=== PATIENT | female | born 1975 | race Caucasian/White ===

== ENCOUNTER 2016-11-27 15:57 | Inpatient (IN) | payer OTHER ==
--- NOTE | 2016-11-08 14:16 | GHP ---
[f rep st] PREOP HISTORY AND PHYSICAL ADDENDUM TO PREVIOUSLY DICTATED REPORT DATE OF ADMISSION: 11/27/2016 HISTORY OF PRESENT ILLNESS: The patient is a 41-year-old, 3, para 1, 0- 1-1, who was scheduled for a repeat low transverse section for November. She presented in active labor on November 27, 2016. She began having contractions early in the morning of the . They increased in intensity and frequency in the afternoon, and at 4:30 p.m. she presented with contractions every 4-5 minutes. They were getting intense and her cervix was 2 cm, 80%, -2. heart tones are 140s and reactive, category 1. I counseled her regarding her options of attempting a vaginal after section versus a repeat section, patient desires a repeat section and we will proceed today. /[id number] ORIGINAL REPORT Amended report DATE OF ADMISSION: 11/29/2016 PLANNED PROCEDURE: Repeat low transverse section on 11/29/2016. INDICATION: History of previous low transverse section. HISTORY OF PRESENT ILLNESS: The patient will be a 41-year-old 3, para 1 -0-1-1 who will be at 39+ weeks' gestation. She has a history of a previous low transverse section for breech presentation. The patient presented in active labor and was not noted to be in breech presentation, got to 8 cm dilated when the breech presentation was discovered, and underwent a primary low transverse section. The patient was somewhat traumatized by that but has come to terms with it. We have had long discussions about attempting a vaginal after section versus having a repeat low transverse section. The patient has decided to have a repeat low transverse section. If she presents in active labor prior to her scheduled C- section date, she might make a decision to attempt a vaginal after section, and she has been adequately counseled on the risks of uterine rupture. The patient as of now wishes to proceed with repeat . MEDICAL HISTORY: None. MEDICATIONS: vitamins. SURGICAL HISTORY: Primary low transverse section. ALLERGIES: No known drug allergies. SOCIAL HISTORY: Patient is . She works as a erp project manager. She lives with her and their other child. She denies tobacco, alcohol, or drug use. FAMILY MEDICAL HISTORY: Noncontributory. OFFICE PROFESSIONALS HISTORY: Menarche age 12-13. Periods are 28 days, lasting 6 days. She is a 3, para 1-0-1-1. In 07/2013, she had a primary low transverse section at 39-4/7 weeks' gestation, and patient progressed in active labor and was found to be breech at 8 cm. She was delivered by [facility] for that . In 07/2015, she had a first trimester spontaneous that did not require a D and C. Current has been uncomplicated. It was conceived spontaneously. She has doing 2 times a week nonstress testing because of her advanced maternal age. She did receive RhoGAM in this . Patient does have a questionable history of a septate uterus. She denies any history of any abnormal Pap smears or sexually transmitted diseases. PHYSICAL EXAM: VITAL SIGNS: Patient's vital signs are stable. GENERAL APPEARANCE: Alert and oriented x3. HEART: Rate is regular, regular. LUNGS: Clear to auscultation bilaterally. ABDOMEN: Gravid, nondistended, nontender. EXTREMITIES: Reveal no calf tenderness or edema. PELVIC: Deferred. heart tracings are category 1. She is not having any contractions. GBS was collected today. LABS: Blood type A negative. Antibody screen negative. Rubella immune. GBS is pending. HBsAg negative. HIV negative. Her 50 g glucose was 89. She had a negative first trimester screen, and she had a negative Verifi screen and a negative alpha-fetoprotein. ASSESSMENT AND PLAN: A 41-year-old, 3, para 1-0-0-1 who will be 39+ weeks' gestation. She has a history of previous low transverse section for breech presentation in active labor. Patient plans to have a repeat low transverse section. Her family status is complete, but she declines to have a tubal ligation at this time. Consent has been obtained, and the patient is agreeing to proceed. /[id number]/MODL Add acc#, 11/23/16, lauren OMALLEY
[2016-11-27] MEDS ORDERED: ceFAZolin 2 GM/DEXTROSE 100 ML IV ONE (16:16)
[2016-11-27] MEDS ORDERED: LR 500 ML IV ONE (16:16)
[2016-11-27] MEDS ORDERED: CITRIC ACID/SODIUM CITRATE 30 ML UDCUP PO ONE (16:16)
[2016-11-27] MEDS ORDERED: LR 1,000 ML IV SCH (16:30)
[2016-11-27 16:53] LABS: % IMMATURE GRANULYOCYTES 0.4 % (0.0-1.1); ABSOLUTE IMMATURE GRANULOCYTES 0.04 10^3/uL (0.00-0.10); ADD DIFF? NO; ADD MORPH? NO; ADD SCAN? NO; ATYPICAL LYMPHOCYTE FLAG 10 (0-99); FRAGMENT RBC FLAG 0 (0-99); HEMATOCRIT 38.6 % (38.0-47.0); HEMOGLOBIN 13.9 g/dL (12.6-16.3); LEFT SHIFT FLG 0 (0-99); LIPEMIA HEMOLYSIS FLAG 90 (0-99); MEAN CELL HEMOGLOBIN 32.5 pg (27.9-34.1); MEAN CELL VOLUME 90.2 fL (81.5-99.8); MEAN PLATELET VOLUME 10.7 fL (8.7-11.7); PLATELET CLUMPS FLAG 40 (0-99); PLATELET COUNT 197 10^3/uL (150-400); RED BLOOD CELL COUNT 4.28 10^6/uL (4.18-5.33); RED CELL DISTRIBUTION WIDTH 12.7 % (11.5-15.2)
[2016-11-27] MEDS ORDERED: TERBUTALINE SULFATE 1 MG/ML VIAL ONE (17:30)
[2016-11-27] MEDS ORDERED: AMMONIA AROMATIC 1 EACH AMP IH ONE (17:30)
[2016-11-27] MEDS ORDERED: OXYTOCIN 10 UNIT/ML VIAL ONE (17:30)
[2016-11-27] MEDS ORDERED: LIDOCAINE 1% 30 ML SDV ONE (17:30)
[2016-11-27] MEDS ORDERED: OLIVE OIL 118 ML BTL ONE (17:30)
[2016-11-27] MEDS ORDERED: MISOPROSTOL 200 MCG TAB ONE (17:31)
[2016-11-27] MEDS ORDERED: morphINE PF 5 MG/10 ML INJ ONE (18:12)
[2016-11-27] MEDS ORDERED: fentaNYL 100 MCG/2 ML INJ ONE (18:12)
[2016-11-27] MEDS ORDERED: OXYTOCIN 100 UNITS/10 ML VIAL ONE (18:43)
[2016-11-27] MEDS ORDERED: PHENYLEPHRINE HCL 100 MCG/ML SYR ONE (18:56)
[2016-11-27 18:57] LABS: BASE EXCESS CORD 0.3 mEq/L (-13.6--3.2); CORD BLOOD PCO2 53.4 mmHg (37-60); PH ARTERIAL CORD BLOOD 7.33 (7.10-7.37)
[2016-11-27 19:01] LABS: PH VENOUS CORD BLOOD 7.39 (7.20-7.42)
[2016-11-27] MEDS ORDERED: MEPERIDINE 25 MG/ML SYR IVP PRN (19:28)
[2016-11-27] MEDS ORDERED: ONDANSETRON 4 MG/2 ML VIAL IVP PRN (19:28)
[2016-11-27] MEDS ORDERED: fentaNYL 100 MCG/2 ML INJ IVP PRN (19:28)
[2016-11-27] MEDS ORDERED: HYDROCODONE/APAP 5/325 TAB PO PRN (19:37)
[2016-11-27] MEDS ORDERED: ACETAMINOPHEN 325 MG TAB PO PRN (19:37)
[2016-11-27] MEDS ORDERED: SIMETHICONE 80 MG TAB CHEW PO PRN (19:37)
[2016-11-27] MEDS ORDERED: DOCUSATE SODIUM 100 MG CAP PO PRN (19:37)
[2016-11-27] MEDS ORDERED: MAGNESIUM HYDROXIDE 30 ML UDCUP PO PRN (19:38)
[2016-11-27] MEDS ORDERED: POLYETHYLENE GLYCOL 3350 17 GM PKT PO PRN (19:38)
[2016-11-27] MEDS ORDERED: BISACODYL 10 MG SUPP PR PRN (19:38)
[2016-11-27] MEDS ORDERED: LACTULOSE 20 GM/30 ML UDCUP PO PRN (19:38)
--- NOTE | 2016-11-27 19:41 | OBPROC ---
- Delivery Pre-op Diagnoses: IUP @ 39 weeks h/o c section desires repeat, in active labor Post-op Diagnoses: same Procedure: Repeat Surgeon: Nilda Louis Typewriters Functional Tester: Fani Olson Anesthesiologist: Onel Naylor Elevator Inspector/COLOR CONSULTANT: Mag Torres Anesthesia: Spinal Complications: Other (Specify) (thick meconium) IV Fluid (ml): 1,300 EBL: 800 Cord Gases: Cord Gases Cord Blood PCO2 53.4 mmHg (37-60) 11/27/16 18:50 Cord Base Excess 0.3 mEq/L (-13.6--3.2) H 11/27/16 18:50 Cord ABG pH 7.33 (7.10-7.37) 11/27/16 18:50 Cord VBG pH 7.39 (7.20-7.42) 11/27/16 18:50 - [place] Info Infant A Delivery Date: 11/27/16 Delivery Time: 18:44 Sex of : Male Weight (gm): 3318 g Score (1 Min): 9 Score (5 Min): 9
--- NOTE | 2016-11-27 20:07 | GOP ---
[f rep st] OPERATIVE REPORT DATE OF OPERATION: 11/27/2016 SURGEON: Nilda Louis MD WIRE BOUND BOX MACHINE OPERATOR: WILLIE Banks. Certified nurse 1st assistant associate professor. ANESTHESIA: Spinal anesthesia. ANESTHESIOLOGIST: Onel Naylor MD. PREOPERATIVE DIAGNOSIS: Intrauterine at 39 weeks gestation with a history of lower transverse section. Desires repeat, in active labor. POSTOPERATIVE DIAGNOSIS: Intrauterine at 39 weeks gestation with a history of lower transverse section, desires repeat, in active labor. PROCEDURE PERFORMED: Repeat lower transverse section. FINDINGS: Viable male. Apgars of 9 and 9. Weight of 7 pounds, 5 ounces. ESTIMATED BLOOD LOSS: 800 cc. INDICATIONS: The patient is a 41-year-old 3, para 1-0-1-1, who has an EDC of 12/04/2016 and is 39 weeks gestation. She had a history of with G1 secondary to breech in active labor and desired a repeat for this delivery. She presented with contractions on the morning of the that increased in frequency over the afternoon until they were 3 to 4 minutes apart. On assessment, heart tones were in the 130s, with moderate variability. She had some variable decelerations, but overall category 1 to 2. Cervix was 3 cm, 80%, -2. The patient was intact, and she wanted a repeat . So she was consented for the procedure. She understood the risks and benefits. The risks including bleeding, infection, damage to internal organs, uterus, tubes, ovaries, bowel, bladder, nerves, blood vessels, ureters, risk of injury, risk of hemorrhage requiring blood transfusion, hysterectomy, or . She understood these risks and benefits, agreed to proceed. DESCRIPTION OF PROCEDURE: Patient was taken to the operating room where she was placed under spinal anesthesia without difficulty. She was prepped and draped in a dorsal supine position with a leftward tilt, and a Cobos catheter was placed in her bladder. After adequate anesthesia was assured, a transverse skin incision was made in the previous scar. The incision was carried down to the underlying layer of fascia with the Bovie. The fascia was incised in the midline. Fascial incision was extended laterally with Mark scissors. Superior aspect of the fascial incision was grasped with Melissa clamps, elevated, and the rectus muscles were dissected off sharply. Inferior aspect of the fascial incision was grasped with Melissa clamps, elevated, and dissected sharply. The rectus muscles were in the midline. The peritoneum was entered bluntly. The peritoneal incision was extended superiorly and inferiorly with good visualization of the bladder. A bladder blade was inserted and the vesicouterine peritoneum grasped with the pickups, entered sharply with Metzenbaum scissors. The incision was extended laterally and a bladder flap was created digitally. The uterus was incised with a knife and the incision was extended laterally with banded scissors. There was thick meconium upon entry to the amniotic cavity. The baby was delivered atraumatically. The cord was clamped and cut. The infant was handed off to the waiting nurse practitioners. Cord blood gas as well as cord bloods were sent. The placenta was removed manually. The uterus was exteriorized and cleared of all clots and debris. The uterine incision was repaired with 0 Vicryl in a running, locked fashion. [id number] suture was performed on the superior margin of the incision for hemostasis, and good hemostasis was assured. The uterus was returned to the abdomen. Gutters were cleared of all clots and debris. Reinspection of the uterine incision again assured hemostasis. The rectus muscles were repaired with 2-0 Vicryl in a running fashion and the rectus muscles were closed. There was a defect in the anterior fascia on its superior border, and this was closed with #1 Vicryl, and the fascial incision was closed with #1 Vicryl in a running fashion. The subcutaneous layer was closed with 2-0 Vicryl and the skin was closed with 4-0 Vicryl. The patient tolerated the procedure well. Sponge, lap, needle, and instrument counts were correct x2. The patient went to the recovery room in good condition. IV FLUIDS: 1300 cc. URINE OUT: 400 cc. /[id number]/MODL MTDD
[2016-11-27] MEDS ORDERED: KETOROLAC 30 MG/1 ML SDV ONE (20:48)
[2016-11-27] MEDS: KETOROLAC 30 MG/1 ML SDV IVP PRN (20:50)
[2016-11-27] MEDS: SENNOSIDES/DOCUSATE SODIUM TAB PO SCH (22:35)
[2016-11-28] MEDS: KETOROLAC 30 MG/1 ML SDV IVP PRN ×3 (03:19→15:20)
[2016-11-28] MEDS: SENNOSIDES/DOCUSATE SODIUM TAB PO SCH ×2 (09:28→21:05)
--- NOTE | 2016-11-28 09:45 | OBPROG ---
OBG Progress Note Assessment/Plan: Assessment: 41 y/o POD #1 s/p Rpt LTCS doing well. Plan: Transition to reg diet and oral pain meds. D/c ureña this pm and ambulate with assistance. support and routine POC. 11/28/16 09:43 Subjective: Pt is doing well this am. She has good pain control with Toradol and Duramorph. She is parker reg diet and has min lochia, Baby is doing well latching and nursing. Objective: 11/28/16 03:30 Patient ABO/Rh A NEGATIVE 11/27/16 19:41 Temp Pulse Resp BP Pulse Ox 36.6 C 94 17 84/56 L 95 11/28/16 08:16 11/28/16 09:00 11/28/16 08:16 11/28/16 09:00 11/28/16 09:00 Uterine Position/Fundal Height: Umbilicus -2 Uterine Tone: Firm - Physical Exam General Appearance: WD/WN, alert, no apparent distress Neck: non-tender, full range of motion, supple Respiratory: chest non-tender, lungs clear, normal breath sounds Cardiac/Chest: regular rate, rhythm Abdomen: normal bowel sounds, dressing (c/d/i) Extremities: swelling (no), Isabela's sign (neg) ICD10 Worksheet Patient Problems: Problems Problem Status Onset Breech or other malpresentation successfully converted to cephalic presentation , unspecified as to episode of care Acute Breech presentation Acute Delivery by elective caesarean section Acute
[2016-11-28] MEDS ORDERED: IRON POLYSAC/IRON HEME 28 MG TAB PO SCH (10:00)
[2016-11-28 16:52] VITALS: RESP 16
[2016-11-28] MEDS: IBUPROFEN 600 MG TAB PO PRN (21:06)
[2016-11-29] MEDS: IBUPROFEN 600 MG TAB PO PRN ×4 (03:35→21:22)
--- NOTE | 2016-11-29 07:34 | SOAPPROG ---
SOAP Progress Note Assessment/Plan: Assessment: 41y/o day 2 s/p repeat C/S 11/27/16 Rh neg - s/p Rhogam Mild anemia Plan: Con't routine PP care PO iron Increase PO hydration 11/29/16 07:31 Subjective: Pt resting in bed with sleeping on chest. Reports pain well-controlled on ibuprofen. Passed small clot yesterday evening when got up to bathroom, felt dizzy "like I was going to pass out" - RN assisted back to bed. Up again around 0400 this morning, denies dizziness/concern since episode last night. Voiding without difficulty, +BM. Tolerating regular diet. Reports going well. Objective: Vital Signs Temp Pulse Resp BP Pulse Ox 36.4 C 84 16 95/63 L 96 11/29/16 03:40 11/29/16 03:40 11/29/16 03:40 11/29/16 03:40 11/29/16 03:40 Laboratory Results 11/28/16 03:30 11/28/16 11/29/16 11/30/16 05:59 05:59 05:59 Intake Total 1999 Output Total 6177 5013 Balance -1525 -4700 Physical Exam - Physical Exam General Appearance: alert, no apparent distress Respiratory: lungs clear, normal breath sounds Cardiac/Chest: regular rate, rhythm Abdomen: non-tender, soft Pelvic Exam: vaginal bleeding (lochia light), other (C/S incision clean, dry, well-approximated) Skin: normal color, warm/dry Extremities: normal range of motion, pedal edema (trace BLE edema) Neuro/Psych: alert, normal mood/affect, oriented x 3 ICD10 Worksheet Patient Problems: Problems Problem Status Onset Breech or other malpresentation successfully converted to cephalic presentation , unspecified as to episode of care Acute Breech presentation Acute Delivery by elective caesarean section Acute
[2016-11-29] MEDS: IRON POLYSAC/IRON HEME 28 MG TAB PO SCH ×2 (09:11→21:20)
[2016-11-29] MEDS: SENNOSIDES/DOCUSATE SODIUM TAB PO SCH ×2 (09:12→21:21)
[2016-11-30] MEDS: IBUPROFEN 600 MG TAB PO PRN ×2 (03:15→09:21)
--- NOTE | 2016-11-30 08:47 | OBPROG ---
OBG Progress Note Assessment/Plan: Assessment: 1) s/p RCS POD # 3 - pt is stable 2) Anemia - pt is asymptomatic Plan: Plan for d/c home today Instructions reviewed with pt Rx given for [place] and Motrin Cont PNV Pelvic rest RTC in 2, 4 and 6 weeks for pp visit 11/30/16 08:47 Subjective: Pt seen and examined. Doing well, no complaints. Pain is well controlled, only taking Motrin. Pt is OOB, parker regular diet, voiding without difficulty, BM x 3. Denies any f/c/n/v/CP or SOB. Moderate lochia. without difficulty. Objective: 11/28/16 03:30 Patient ABO/Rh A NEGATIVE 11/27/16 19:41 Temp Pulse Resp BP Pulse Ox 36.2 C 85 16 95/67 L 100 11/29/16 19:51 11/29/16 19:51 11/29/16 19:51 11/29/16 19:51 11/29/16 19:51 Uterine Position/Fundal Height: Umbilicus -2 Uterine Tone: Firm - Physical Exam General Appearance: WD/WN, alert, no apparent distress Respiratory: lungs clear, normal breath sounds Cardiac/Chest: regular rate, rhythm Abdomen: normal bowel sounds, non-tender, soft, flatus (+; BM x 3), incision (C/ D/I with steri strips) Extremities: non-tender, normal inspection Neuro/Psych: alert, normal mood/affect, oriented x 3 ICD10 Worksheet Patient Problems: Problems Problem Status Onset Breech or other malpresentation successfully converted to cephalic presentation , unspecified as to episode of care Acute Breech presentation Acute Delivery by elective caesarean section Acute
[2016-11-30 09:18] VITALS: BP 95/69; PULSE 87; TEMP 97; O2SAT 98
[2016-11-30] MEDS: IRON POLYSAC/IRON HEME 28 MG TAB PO SCH (10:15)
[2016-11-30] MEDS: SENNOSIDES/DOCUSATE SODIUM TAB PO SCH (10:15)
== END 2016-11-30 12:10 | disposition home or self-care (01) | DRG 766 ==
LOC: FLD 15:57 → FOB 22:30
PROVIDERS: ADMIT Obstetrics & Gynecology; ATTEND Obstetrics & Gynecology
PROC: 10D00Z1 Extraction of Products of Conception, Low, Open Approach (ICD-10-PCS; principal; 2016-11-27)
DX: O34.219 Maternal care for unspecified type scar from previous cesarean delivery (principal); Z37.0 Single live birth; Z3A.39 39 weeks gestation of pregnancy
CPT/HCPCS: J0690; J1885; J2274; J2370; J2590; J3010; J3105

== ENCOUNTER → 2018-04-25 | Outpatient (CLI) | payer OTHER | LOC: BMCIMAGING 13:23 | PROVIDERS: ATTEND Family Medicine | DX: R16.1 Splenomegaly, not elsewhere classified (principal); K63.89 Other specified diseases of intestine ==

== ENCOUNTER → 2019-01-25 | Outpatient (CLI) | payer OTHER | LOC: FIMAGING 11:34 ==